=== PATIENT | female | born 1995 | race Caucasian/White ===

== ENCOUNTER 2019-04-03 05:23 | Emergency (ER) | payer SELFPAY ==
[2019-04-03] MEDS ORDERED: Lidocaine 1% 20 ML MDV INJECT ONE (05:39)
--- NOTE | 2019-04-03 06:00 | EDM.PDOC ---
ED HPI GENERAL MEDICAL PROBLEM - General Chief Complaint: General Stated Complaint: "I have a fish hook in my finger" Time Seen by Provider: 04/03/19 05:45 Source of Information: Reports: Patient History Limitations: Reports: No Limitations - History of Present Illness INITIAL COMMENTS - FREE TEXT/NARRATIVE: Patient presents to ER with a fish hook in her index finger. Was getting her tackle ready about 4 hours ago and caught it in her finger. Has been "trying to get it out since then". Does think she got her last tetanus 6 years ago. Onset: Today Duration: Hour(s): Location: Reports: Upper Extremity, Right Severity: Mild Associated Symptoms: Reports: No Other Symptoms - Related Data Allergies Allergy/AdvReac Type Severity Reaction Status Date / Time No Known Allergies Allergy Verified 04/03/19 05:30 Home Meds: Home Meds . [No Known Home Meds] 04/03/19 [History] Past Medical History - Past Health History Medical/Surgical History: Denies Medical/Surgical History Social & Family History - Tobacco Use Smoking Status *Q: Never Smoker ED ROS GENERAL - Review of Systems Review Of Systems: Comprehensive ROS is negative, except as noted in HPI. ED EXAM, GENERAL - Physical Exam Exam: See Below Exam Limited By: No Limitations General Appearance: Alert, WD/WN, No Apparent Distress Extremities: Other (3-prong fish hook noted with one jayme embedded in to the tip of the index finger) ED GENERAL MEDICAL PROCEDURES - Laceration/Wound Repair Right Digit - 2nd (Index) Anesthetic Type: Local Local Anesthesia - Lidocaine (Xylocaine): 1% Plain Local Anesthetic Volume: 1cc Progress/Comments: Lidocaine injected to finger tip. Hook cut off with wire machine operator. Able to pull the remaining jayme then out of the finger tip with hook intact. Patient tolerated well. Thoroughly cleaned with betadine after. Course - Orders/Labs/Meds Meds: Medications Discontinued Medications Generic Name Dose Route Start Last Admin Trade Name Freq PRN Reason Stop Dose Admin Lidocaine HCl 20 ml 04/03/19 05:39 04/03/19 05:53 Xylocaine 1% INJECT 04/03/19 05:40 20 ml ONETIME ONE Administration Departure - Departure Time of Disposition: 05:59 Disposition: Home, Self-Care 01 Condition: Good Clinical Impression: Fish hook injury of finger - Discharge Information *PRESCRIPTION DRUG MONITORING PROGRAM REVIEWED*: No *COPY OF PRESCRIPTION DRUG MONITORING REPORT IN PATIENT LALIT: No Forms: ED Department Discharge Additional Instructions: 1. Soak finger periodically through the day 2. Neosporin to finger for 3 days 3. Will call you if tetanus needed 4. Follow up if any concerns Sepsis Event Note - Focused Exam Date Exam was Performed: 04/03/19 Time Exam was Performed: 06:09
== END 2019-04-03 06:05 | disposition home or self-care (01) ==
LOC: CC.ED 05:23
DX: S60.450A Superficial foreign body of right index finger, initial encounter (principal); W45.8XXA Other foreign body or object entering through skin, initial encounter
CPT/HCPCS: 99283; J2001